=== PATIENT | female | born 1965 | race Caucasian/White ===

== ENCOUNTER 2016-08-04 04:32 | Emergency (ER) | payer MEDICAID, OTHER ==
[2016-08-04] MEDS ORDERED: Ketorolac 60 MG/2 ML SDV IVPUSH ONE (05:13)
[2016-08-04] MEDS ORDERED: Ondansetron 4 MG/2 ML SDV IVPUSH ONE (05:14)
[2016-08-04] MEDS ORDERED: HYDROmorphone 1 MG/ML Syringe IVPUSH ONE ×2 (05:14→06:28)
[2016-08-04] MEDS: Sodium Chloride 0.9% 1,000 ML IV SCH ×2 (05:26→07:34)
[2016-08-04] MEDS ORDERED: cefTRIAXone 500 MG Vial IVPUSH ONE (05:52)
[2016-08-04] MEDS ORDERED: cefTRIAXone 1 GM in Sodium Chloride 0.9% 50 ML IV ONE (05:59)
[2016-08-04] MEDS ORDERED: HYDROmorphone 1 MG/ML Syringe ONE (06:28)
--- NOTE | 2016-08-04 06:52 | EDM.PDOC ---
<Ronn Valenzuela - Last Filed: 08/04/16 06:46> ED HPI GENERAL MEDICAL PROBLEM - General Chief Complaint: Flank Pain Stated Complaint: RT SIDE PAIN Time Seen by Provider: 08/04/16 05:08 Source of Information: Reports: Patient History Limitations: Reports: No Limitations - History of Present Illness INITIAL COMMENTS - FREE TEXT/NARRATIVE: History of present illness: [Patient presents with a history of kidney stones and in the last 3 days has had burning and frequency and suprapubic pain and then 24 hours ago started having bilateral flank pain and back pain and presents here with 10 out of 10 pain writhing in pain with a temperature of 38.0. She's had no nausea vomiting. They've been traveling and have a cabin in this area but I believe are from [place]. She recently had pneumonia and finished a course of Zithromax for this and is doing much better as far as her cough and pneumonia symptoms.] Review of systems: As per history of present illness and below otherwise all systems reviewed and negative. Past medical history: As per history of present illness and as reviewed below otherwise noncontributory. Surgical history: As per history of present illness and as reviewed below otherwise noncontributory. Social history: No reported history of drug or alcohol abuse. Family history: As per history of present illness and as reviewed below otherwise noncontributory. Physical exam: HEENT: Atraumatic, normocephalic, pupils reactive, negative for conjunctival pallor or scleral icterus, mucous membranes moist, throat clear, neck supple, nontender, trachea midline. Lungs: Clear to auscultation, breath sounds equal bilaterally, chest nontender. Heart: S1S2, regular, negative for clicks, rubs, or JVD. Abdomen: Soft, nondistended, nontender. Negative for masses or hepatosplenomegaly. Mild bilateral CVA tenderness. Mild suprapubic tenderness Pelvis: Stable nontender. Genitourinary: Deferred. Rectal: Deferred. Extremities: Atraumatic, negative for cords or calf pain. Neurovascular unremarkable. Neuro: Awake, alert, oriented. Cranial nerves II through XII unremarkable. Cerebellum unremarkable. Motor and sensory unremarkable throughout. Exam nonfocal. Diagnostics: [UA strongly suggest UTI. Cultures were done. Blood cultures were done. CBC shows mildly elevated white count. Lactic acid is 2.2. Abdominal pelvic CT reveals evidence for cystitis and evidence for recently passing a stone or stones. With the inflammation about the ureters. No stones were identified. She has mild hydronephrosis.] Therapeutics: [She's received Dilaudid 1 mg x2. Toradol 50 mg IV x1. and Rocephin 1 g IV. And 1 L of fluids.] Impression: [Severe UTI with possible early pyelonephritis. Also possible recent passing of stones perhaps even bilateral kidney stones.] Plan: [She would really like to go home her is reluctant to have her come home given the mild pain that she's been in. She will be observed in the ER for an hour to and Officer who is was coming on we'll have to help with the disposition of this patient. I will provide prescription for Cipro and Percocet that can be used it is decided to send her home.] Definitive disposition and diagnosis as appropriate pending reevaluation and review of above. Flank Pain Score (Numeric/FACES): 10 - Related Data Allergies Allergy/AdvReac Type Severity Reaction Status Date / Time No Known Allergies Allergy Verified 08/04/16 04:50 Home Meds: Home Meds Azithromycin [Azithromycin] 08/04/16 [History] Past Medical History Cardiovascular History: Reports: High Cholesterol DOCTOR OF RADIOLOGY History: Reports: Musculoskeletal History: Reports: Fracture - Infectious Disease History Infectious Disease History: Reports: Chicken Pox, Measles - Past Surgical History Female Surgical History: Reports: Hysterectomy Other Musculoskeletal Surgeries/Procedures:: ankle surgery Social & Family History - Tobacco Use Smoking Status *Q: Never Smoker - Caffeine Use Caffeine Use: Reports: Coffee - Recreational Drug Use Recreational Drug Use: No Course - Vital Signs Last Recorded V/S: Last Vital Signs Temp 99.8 F 08/04/16 10:33 Pulse 86 08/04/16 09:02 Resp 16 08/04/16 10:33 BP 121/77 08/04/16 10:33 Pulse Ox 95 08/04/16 10:33 - Orders/Labs/Meds Orders: Active Orders 24 hr Category Date Time Status Abdomen Pelvis wo Cont [CT] Stat Exams 08/04/16 05:15 Taken CULTURE BLOOD [BC] Stat Lab 08/04/16 06:00 Received CULTURE BLOOD [BC] Stat Lab 08/04/16 06:05 Received CULTURE URINE [RM] Stat Lab 08/04/16 05:30 Received Sodium Chloride 0.9% [Normal Saline] 1,000 ml Med 08/04/16 05:15 Active IV ASDIRECTED Medication Orders Sodium Chloride (Normal Saline) 1,000 mls @ 999 mls/hr IV ASDIRECTED MARCO ANTONIO Stop: 08/08/16 05:12 Last Admin: 08/04/16 07:34 Dose: 999 mls/hr Infusion: 08/04/16 06:27 Dose: 999 mls/hr Admin: 08/04/16 05:26 Dose: 999 mls/hr Labs: Laboratory Tests 08/04/16 08/04/16 08/04/16 Range/Units 04:54 05:17 05:17 WBC 11.3 H (4.5-11.0) K/uL RBC 4.31 (3.30-5.50) M/uL Hgb 15.2 H (12.0-15.0) g/dL Hct 44.5 (36.0-48.0) % MCV 103 H (80-98) fL MCH 35 H (27-31) pg MCHC 34 (32-36) % Plt Count 198 (150-400) K/uL Neut % (Auto) 79 H (36-66) % Lymph % (Auto) 11 L (24-44) % [place] % (Auto) 9 H (2-6) % Eos % (Auto) 0 L (2-4) % Baso % (Auto) 0 (0-1) % Sodium 138 L (140-148) mmol/L Potassium 4.3 (3.6-5.2) mmol/L Chloride 103 (100-108) mmol/L Carbon Dioxide 23 (21-32) mmol/L Anion Gap 16.3 H (5.0-14.0) mmol/L BUN 12 (7-18) mg/dL Creatinine 0.8 (0.6-1.0) mg/dL Est Cr Clr Drug Dosing 96.01 mL/min Estimated GFR (MDRD) > 60 (>60) Glucose 115 H (74-106) mg/dL Lactic Acid (0.4-2.0) mmol/L Calcium 8.6 (8.5-10.1) mg/dL Total Bilirubin 0.9 (0.2-1.0) mg/dL AST 49 H (15-37) U/L ALT 112 H (12-78) U/L Alkaline Phosphatase 111 (46-116) U/L Total Protein 7.5 (6.4-8.2) g/dL Albumin 3.7 (3.4-5.0) g/dL Globulin 3.8 H (2.3-3.5) g/dL Albumin/Globulin Ratio 1.0 L (1.2-2.2) Urine Color Kay Urine Appearance Cloudy Urine pH 8.0 (4.5-8.0) Ur Specific [place] 1.005 L (1.008-1.030) Urine Protein 30 H (NEGATIVE) mg/dL Urine Glucose (UA) Normal (NEGATIVE) mg/dL Urine Ketones Negative (NEGATIVE) mg/dL Urine Occult Blood Large (NEGATIVE) Urine Nitrite Negative (NEGATIVE) Urine Bilirubin Negative (NEGATIVE) Urine Urobilinogen Normal (NORMAL) mg/dL Ur Leukocyte Esterase Large (NEGATIVE) Urine RBC 10-20 H (0-5) Urine WBC Packed H (0-5) Ur Epithelial Cells Not seen Amorphous Sediment Rare Urine Bacteria Rare Urine Mucus Not seen 08/04/17 Range/Units 05:17 WBC (4.5-11.0) K/uL RBC (3.30-5.50) M/uL Hgb (12.0-15.0) g/dL Hct (36.0-48.0) % MCV (80-98) fL MCH (27-31) pg MCHC (32-36) % Plt Count (150-400) K/uL Neut % (Auto) (36-66) % Lymph % (Auto) (24-44) % [place] % (Auto) (2-6) % Eos % (Auto) (2-4) % Baso % (Auto) (0-1) % Sodium (140-148) mmol/L Potassium (3.6-5.2) mmol/L Chloride (100-108) mmol/L Carbon Dioxide (21-32) mmol/L Anion Gap (5.0-14.0) mmol/L BUN (7-18) mg/dL Creatinine (0.6-1.0) mg/dL Est Cr Clr Drug Dosing mL/min Estimated GFR (MDRD) (>60) Glucose (74-106) mg/dL Lactic Acid 2.2 H (0.4-2.0) mmol/L Calcium (8.5-10.1) mg/dL Total Bilirubin (0.2-1.0) mg/dL AST (15-37) U/L ALT (12-78) U/L Alkaline Phosphatase (46-116) U/L Total Protein (6.4-8.2) g/dL Albumin (3.4-5.0) g/dL Globulin (2.3-3.5) g/dL Albumin/Globulin Ratio (1.2-2.2) Urine Color Urine Appearance Urine pH (4.5-8.0) Ur Specific [place] (1.008-1.030) Urine Protein (NEGATIVE) mg/dL Urine Glucose (UA) (NEGATIVE) mg/dL Urine Ketones (NEGATIVE) mg/dL Urine Occult Blood (NEGATIVE) Urine Nitrite (NEGATIVE) Urine Bilirubin (NEGATIVE) Urine Urobilinogen (NORMAL) mg/dL Ur Leukocyte Esterase (NEGATIVE) Urine RBC (0-5) Urine WBC (0-5) Ur Epithelial Cells Amorphous Sediment Urine Bacteria Urine Mucus Meds: Medications Generic Name Dose Route Start Last Admin Trade Name Freq PRN Reason Stop Dose Admin Sodium Chloride 1,000 mls @ 999 mls/hr 08/04/16 05:15 08/04/16 07:34 Normal Saline IV 08/08/16 05:12 999 mls/hr ASDIRECTED MARCO ANTONIO Administration Discontinued Medications Generic Name Dose Route Start Last Admin Trade Name Freq PRN Reason Stop Dose Admin Ceftriaxone Sodium 1,000 mg 08/04/16 05:52 08/04/16 05:54 Rocephin IVPUSH 08/04/16 05:53 Not Given ONETIME ONE Fentanyl 100 mcg 08/04/16 07:43 08/04/16 07:48 Sublimaze IVPUSH 08/04/16 07:44 100 mcg ONETIME ONE Administration Fentanyl 50 mcg 08/04/16 09:21 08/04/16 09:30 Sublimaze IVPUSH 08/04/16 09:22 50 mcg ONETIME ONE Administration Hydromorphone HCl 1 mg 08/04/16 05:14 08/04/16 05:23 Dilaudid IVPUSH 08/04/16 05:15 1 mg ONETIME ONE Administration Hydromorphone HCl 1 mg 08/04/16 06:28 08/04/16 06:30 Dilaudid IVPUSH 08/04/16 06:29 1 mg ONETIME ONE Administration Hydromorphone HCl Confirm 08/04/16 06:28 08/04/16 06:33 Dilaudid Administered 08/04/16 06:29 Not Given Dose 1 mg .ROUTE .STK-MED ONE Ceftriaxone Sodium 1 gm/ 50 mls @ 100 mls/hr 08/04/16 05:59 08/04/16 06:08 Sodium Chloride IV 08/04/16 06:28 100 mls/hr ONETIME ONE Administration Ketorolac Tromethamine 15 mg 08/04/16 05:13 08/04/16 05:21 Toradol IVPUSH 08/04/16 05:14 15 mg ONETIME ONE Administration Ketorolac Tromethamine 15 mg 08/04/16 07:16 08/04/16 07:35 Toradol IVPUSH 08/04/16 07:17 15 mg ONETIME ONE Administration Ondansetron HCl 4 mg 08/04/16 05:14 08/04/16 05:19 Zofran IVPUSH 08/04/16 05:15 4 mg ONETIME ONE Administration Phenazopyridine HCl 190 mg 08/04/16 09:43 08/04/16 09:47 Urinary Pain Relief PO 08/04/16 09:44 190 mg ONETIME ONE Administration Departure - Departure Disposition: Home, Self-Care 01 Clinical Impression: UTI, Urinary tract infectious disease - Discharge Information Referrals: PCP,None [Primary Care Provider] - Forms: ED Department Discharge Additional Instructions: Use Percocet as needed for pain control, take full course of antibiotics use Pyridium as needed for bladder spasms, please followup with your primary care provider upon return home if no improvement <OfficerPo - Last Filed: 08/04/16 10:46> ED HPI GENERAL MEDICAL PROBLEM Flank Pain Score (Numeric/FACES): 9 Bladder Pain Score (Numeric/FACES): 3 ED ROS GENERAL - Review of Systems Review Of Systems: Unable To Obtain (See Dr. Valenzuela's note) ED EXAM, RENAL/ - Physical Exam Exam: Not Obtained (see Dr. Gray note) Departure - Departure Time of Disposition: 10:43 Condition: good - Assessment/Plan Plan: Assessment: Probable passage of kidney stone with urinary tract infection Plan She had some improvement with fentanyl provided in combination with Pyridium, discharge home with Percocet for pain control in combination with ciprofloxacin have her followup with your primary care provider upon return home
[2016-08-04] MEDS ORDERED: Ketorolac 30 MG/ML SDV IVPUSH ONE (07:16)
[2016-08-04] MEDS ORDERED: fentaNYL 100 MCG/2 ML SDV IVPUSH ONE ×2 (07:43→09:21)
[2016-08-04] MEDS ORDERED: Phenazopyridine 95 MG Tab PO ONE (09:43)
[2016-08-04 10:34] VITALS: BP 121/77
== END 2016-08-04 10:59 | disposition home or self-care (01) ==
LOC: JP.ED 04:32
DX: N39.0 Urinary tract infection, site not specified (principal); E78.00 Pure hypercholesterolemia, unspecified; Z79.899 Other long term (current) drug therapy; Z98.890 Other specified postprocedural states
CPT/HCPCS: 36415; 74176; 80053; 81001; 83605; 85025; 87040; 87086; 87088; 87186; 96361; 96374; 96375; 96376; 99284; A9270; J0696; J1170; J1885; J2405; J3010; J7040; J7050

== ENCOUNTER 2023-08-29 18:06 | Emergency (ER) | payer MEDICARE, BC ==
[2023-08-29 19:03] LABS: BASOPHILS ABSOLUTE AUTO 0.03 K/uL (0.00-0.10); BASOPHILS PERCENT AUTO 0.7 % (0.1-1.3); EOSINOPHILS ABSOLUTE AUTO 0.03 K/uL (0.00-0.40); EOSINOPHILS PERCENT AUTO 0.7 % (0.0-5.4); HEMATOCRIT 35.4 % (34.3-46.0); HEMOGLOBIN 12.1 g/dL (11.2-15.5); IMMATURE GRAN PERCENT AUTO 0.2 % (0.0-0.7); LYMPHOCYTES ABSOLUTE AUTO 0.94 K/uL (0.8-3.3); LYMPHOCYTES PERCENT AUTO 22.2 % (11.4-47.7); MEAN CORPUSCULAR HEMOGLOBIN 36.9 pg (31.6-35.5); MEAN CORPUSCULAR HGB CONC 34.2 g/dL (31.6-35.5); MEAN CORPUSCULAR VOLUME 107.9 fL (81.4-99.0); MONOCYTES PERCENT AUTO 11.8 % (3.3-12.6); NEUTROPHILS ABSOLUTE AUTO 2.73 K/uL (1.0-7.6); NEUTROPHILS PERCENT AUTO 64.4 % (40.0-78.1); PLATELET COUNT,PLT 125 K/uL (130-375); RED BLOOD CELL COUNT 3.28 M/uL (3.77-5.24); WHITE BLOOD CELL COUNT,WBC 4.2 K/uL (3.2-11.0)
[2023-08-29] MEDS: Sodium Chloride 0.9% 10 ML Syringe FLUSH PRN (19:03)
[2023-08-29] MEDS: fentaNYL 100 MCG/2 ML SDV IVPUSH ONE (19:03)
[2023-08-29 19:05] LABS: IMMATURE GRAN ABSOLUTE AUTO 0.01 K/uL (0.00-0.23)
[2023-08-29] MEDS: HYDROmorphone 1 MG/ML Syringe IVPUSH ONE ×2 (19:11→20:38)
[2023-08-29 19:35] LABS: A/G RATIO 1.2 (1.2-2.2); ALANINE AMINOTRANSFERASE,ALT 25 U/L (12-78); ALBUMIN 3.8 g/dL (3.4-5.0); ALKALINE PHOSPHATASE 100 U/L (46-116); ASPARTATE AMNIOTRANSFERASE,AST 25 U/L (15-37); BILIRUBIN TOTAL 0.3 mg/dL (0.2-1.0); BLOOD UREA NITROGEN,BUN 17 mg/dL (7-18); CARBON DIOXIDE,CO2 29 mmol/L (21-32); CHLORIDE,CL 102 mmol/L (100-108); CREATININE 0.6 mg/dL (0.6-1.0); EST CRCL DRUG DOSING (CG) 110.52 mL/min; ESTIMATED GFR 104 mL/min (>60); GLUCOSE RANDOM 105 mg/dL (74-106); PROTEIN TOTAL,TP 7.1 g/dL (6.4-8.2); SODIUM,NA 139 mmol/L (140-148); TROPONIN I HIGH SENSITIVITY 5.9 pg/mL (<=60.3)
[2023-08-29] MEDS: LORazepam 2 MG/ML SDV IVPUSH ONE (20:40)
[2023-08-29] MEDS: Ketamine 500 MG/5 ML MDV IV ONE (22:02)
[2023-08-29] MEDS: HYDROmorphone 0.5 MG/0.5 ML Syringe IVPUSH ONE (22:05)
[2023-08-29] MEDS: Sodium Chloride 0.9% 50 ML IV SCH (22:26)
[2023-08-29] MEDS: Iopamidol 612 MG/ML 100 ML Bottle IV SCH (22:26)
[2023-08-29] MEDS: Sodium Chloride 0.9% 1,000 ML IV SCH (22:40)
[2023-08-30 00:36] VITALS: BP 119/68; PULSE 66
[2023-08-30] MEDS: HYDROmorphone 0.5 MG/0.5 ML Syringe IVPUSH ONE (01:58)
[2023-08-30] MEDS: Ketamine 500 MG/5 ML MDV IV ONE (01:59)
== END 2023-08-30 02:22 | disposition home or self-care (01) ==
LOC: JP.ED 18:06
DX: R10.13 Epigastric pain (principal); Z79.899 Other long term (current) drug therapy; Z90.710 Acquired absence of both cervix and uterus; Z87.891 Personal history of nicotine dependence
CPT/HCPCS: 36415; 71045; 71260; 80053; 83605; 83690; 84484; 85025; 96361; 96374; 96375; 96376; 99284; J1170; J2060; J3010; J3490; J7030; Q9967